=== PATIENT | female | born 1960 | race Caucasian/White ===

== ENCOUNTER → 2019-02-13 | Emergency (ER) | payer BC ==
[~2019-02-13] VITALS: Ht 152.4 cm; Wt 86.2 kg
[~2019-02-13] MED LIST: ACETAMINOPHEN500 M1; FORTAMET500 MG; PROTONIX40 M1; SIMVASTATIN5 MG
== END | disposition home or self-care (01) ==
LOC: ER 09:19
DX: R10.84 Generalized abdominal pain (principal)